=== PATIENT | female | born 1990 | race African-American/Black ===

== ENCOUNTER 2021-12-30 12:51 | Emergency (ER) | payer OTHER, SELFPAY ==
--- NOTE | ~2021-12-30 | US_ITS ---
US OB transvaginal DATE: 12/30/2021 14:07 INDICATION: Vaginal bleeding and cramping for one day TECHNIQUE: Real-time imaging via transvaginal approach COMPARISON: None FINDINGS: The uterus measures 9.8 cm height, 5.3 cm AP and 5.7 cm transverse dimension. Endometrial e cho complex measures up to 1.5 cm AP dimension. No intrauterine gestational sac is evident. Nabothian cysts are noted in the uterine cervical area. The right ovary is not visualized. The left ovary measures 4 x 2.3 x 2.1 cm and contains an approximately 1.4 x 1.8 cm cyst. There is a small amount of fluid in the left adnexal area and posterior cul-de-sac. IMPRESSION: 1.3 x 1.8 cm left ovarian cyst Small free fluid calculation in the left adnexal area and posterior cul-de-sac No intrauterine gestational sac is detected Reviewed, dictated and finalized at [facility]. Reviewed, dictated and finalized at [facility].
[2021-12-30 12:53] VITALS: BP 160/81; PULSE 82; RESP 18; TEMP 36.6; O2SAT 100
--- NOTE | 2021-12-30 13:11 | ED.FEMALEGU ---
HPI - Female Genitourinary General Chief complaint: Vaginal Bleeding <CARLOS Garcia Last Filed: 12/30/21 17:27> Stated complaint: 6 wks preg, bleeding <CARLOS Garcia Last Filed: 12/30/21 17:27> Time Seen by Provider: 12/30/21 12:58 <CARLOS Garcia Last Filed: 12/30/21 17:27> History of Present Illness HPI Narrative: Patient is a 31-year-old G2, P1 female who is currently about 6 weeks (LMP mid-november) here for evaluation of vaginal bleeding for the past day. Bleeding began with spotting, but is now likened to a normal menstrual cycle, and she has bled through about 2 pads today. Reports some intermittent lower abdominal cramping associated with bleeding, that she likens to menstrual cramps. She has not had her first visit yet, but did have four positive at home tests. Patient contacted Dr. Basilio's office, and the class [employer] provider recommended ED evaluation. She has not yet had an ultrasound to visualize IUP. Denies syncope, lightheadedness, leg swelling, headaches, visual changes. <CARLOS Garcia Last Filed: 12/30/21 17:27> Related Data Home medications: Home Medications Medication Instructions Recorded Confirmed montelukast 10 mg tablet 10 mg PO DAILY 02/01/20 09/02/21 (Singulair) azelastine 137 mcg (0.1 %) nasal 137 mcg intranasal Q12H 08/30/21 09/02/21 spray aerosol <CARLOS Garcia Last Filed: 12/30/21 17:27> Allergies/Adverse reactions: Allergies Allergy/AdvReac Type Severity Reaction Status Date / Time No Known Allergies Allergy Verified 08/30/21 13:42 <CARLOS Garcia Last Filed: 12/30/21 17:27> Review of Systems Review of Systems: Gen.: Denies fevers or chills Eyes: Denies eye pain or visual change ENT: Denies congestion Respiratory: Denies shortness of breath or cough CV: Denies chest pain or palpitations GI: Reports abdominal cramping. Denies nausea, emesis or diarrhea : Reports vaginal bleeding. Denies burning, urgency, frequency or hematuria Musculoskeletal: Denies back pain or muscle pain Neuro: Denies numbness, tingling, weakness or focal weakness Skin: Denies rash Except as documented, all other systems reviewed and negative <Cynthia Herring PA-C - Last Filed: 12/30/21 17:27> [facility] Past Medical History Medical History: Medical History Raynaud disease <Cynthia Herring PA-C - Last Filed: 12/30/21 17:27> Surgical History Surgical History: Surgical History History of section History of cholecystectomy S/P gastric surgery <Cynthia Herring PA-C - Last Filed: 12/30/21 17:27> Family History Family History: Family History Father Hypertension Family history of elevated blood lipids Grandparent Hypertension Diabetes mellitus <Cynthia Herring PA-C - Last Filed: 12/30/21 17:27> Social History Social History: Social History Smoking status: Never smoker Second hand tobacco smoke exposure: No Alcohol intake: never <Cynthia Herrnig PA-C - Last Filed: 12/30/21 17:27> Exam Narrative: APPEARANCE: No acute distress, nontoxic, resting in bed, obese EYES: EOMI HEENT: Normocephalic, atraumatic, OMM RESPIRATORY: No respiratory distress Clear to auscultation bilaterally with no rhonchi wheezing or rales. CARDIOVASCULAR: Regular rate and rhythm without murmurs rubs or gallops. ABDOMINAL: Soft, nontender, nondistended, no rebound or guarding MUSCULOSKELETAL: Moves all extremities. No clubbing, cyanosis or edema. NEURO: Awake and alert. Following commands, speech normal, no focal deficits : Exam performed with license inspector Rehana. Moderate amount o
[2021-12-30 13:30] LABS: Basophils Percent Auto 0.1 % (0.2-1.2); Eosinophils Absolute Auto 0.1 K/mm3 (0-0.3); Eosinophils Percent Auto 1.4 % (0-4.4); Hemoglobin 10.3 g/dL (12.0-15.0); Immature Granulocyte Absolute 0.02 K/mm3 (0.00-0.031); Immature Granulocyte Percent A 0.3 % (0-0.5); Lymphocytes Percent Auto 18.3 % (18.3-44.2); Mean Corpuscular HGB Conc 31.2 g/dl (32-36); Mean Corpuscular Hemoglobin 26.6 pg (26-34); Mean Corpuscular Volume 85.3 fl (80-100); Mean Platelet Volume 8.8 fl (7.4-10.4); Monocytes Absolute Auto 0.5 K/mm3 (0.1-0.6); Monocytes Percent Auto 6.9 % (2.6-8.5); Neutrophils Absolute Auto 5.2 K/mm3 (1.3-6.7); Platelet Count Result 372 k/mm3 (150-375); Red Blood Count 3.87 M/mm3 (4.2-5.4); Red Cell Distribution Width 14.2 % (11.5-14.5); White Blood Count 7.1 K/mm3 (4.5-10.0)
--- NOTE | 2021-12-30 13:30 | PC.NURSE ---
Patient off unit to US.
[2021-12-30 13:56] LABS: Beta HCG Quantitative 52.92 mIU/ML
[2021-12-30 15:58] LABS: Bacteria Urine Trace /hpf; Mucus Urine Rare /lpf; RBC Urine >75 /hpf (0-2); Squamous Epithelial Cell Urine Many /hpf (Few); WBC Urine >75 /hpf
[2021-12-30 16:09] LABS: Add Urine Microscopic? YES; Appearance Urine Slightly Cloudy (Clear); Bilirubin Urine Negative (Negative); Blood Urine 3+ (Negative); Color Urine Red (Yellow); Glucose Urine UA Negative (Negative); Ketones Urine Trace mg/dL (Negative); Leukocyte Esterase Ur Trace LEU/UL (Negative); Nitrate Urine Negative (Negative); Protein Urine 2+ mg/dL (Negative); Urobilinogen Urine 0.2 mg/dL (<2.0); pH Urine 6.5 (5.0-9.0)
[2021-12-30 16:16] VITALS: BP 141/90; PULSE 77; RESP 18; O2SAT 100
== END 2021-12-30 16:17 | disposition home or self-care (01) ==
PROVIDERS: Physician Assistant; Emergency Provider Emergency Medicine; PCP Obstetrics & Gynecology
DX: O20.9 Hemorrhage in early pregnancy, unspecified (principal); Z3A.01 Less than 8 weeks gestation of pregnancy
CPT/HCPCS: 36415; 76817; 81001; 81025; 84702; 85025; 85461; 87086; 99284

== ENCOUNTER 2022-04-24 10:43 | Outpatient (CLI) | payer OTHER, SELFPAY ==
--- NOTE | ~2022-04-24 | US_ITS ---
EXAMINATION: US breast BI limited HISTORY: Patient with pain in the lower outer quadrant of the right breast and lower inner quadrant o f the left breast as well as the bilateral axilla. TECHNIQUE: Limited bilateral breast ultrasound is performed. FINDINGS: There is no evidence of focal abnormal cystic or solid mass in the vicinity of the patient' s reported pain in either breast. There are normal-appearing bilateral axillary lymph nodes. IMPRESSION: No specific sonographic correlate is identified for the patient's reported pain. Further evaluation a t this time should be based on clinical assessment. Continued follow-up physical examination is recom mended. BI-RADS Category 1: Negative Reviewed, dictated and finalized at location [facility]. IMPRESSION: No specific sonographic correlate is identified for the patient's reported pain . Further evaluation at this time should be based on clinical assessment. Manuel nued follow-up physical examination is recommended. BI-RADS Category 1: Negative
== END 2022-04-24 10:44 | disposition home or self-care (01) ==
PROVIDERS: PCP Obstetrics & Gynecology; Visit Provider Obstetrics & Gynecology
DX: R92.2 Inconclusive mammogram (principal); N64.4 Mastodynia
CPT/HCPCS: 76641; 76642

== ENCOUNTER 2022-11-29 11:06 | Outpatient (CLI) | payer OTHER, SELFPAY ==
--- NOTE | ~2022-11-29 | US_ITS ---
Pelvic ultrasound. Clinical History: First trimester , encounter for supervision of normal Technique: Realtime transabdominal and transvaginal scanning of the pelvis was performed. Color flow Doppler and Doppler spectral analysis were performed. Findings: The uterus is anteverted, and contains an intrauterine gestation. [place]-rump length of 8 mm corresponds to an estimated gestational age of 6 weeks 5 days. no distinct cardiac activity se en. There is some debris within the gestational sac. Neither ovary seen. No adnexal mass seen. There is no evidence of free fluid in the cul de sac. Impression: Intrauterine gestation with estimated gestational age of 6 weeks 5 days, but no cardiac activity. Thi s is highly suspicious for demise/missed . Correlate clinically. Reviewed, dictated and finalized at location . Impression: Intrauterine gestation with estimated gestational age of 6 weeks 5 days, but no cardiac activity. This is highly suspicious for demise/missed . Correlate clinically.
== END 2022-11-29 11:07 | disposition home or self-care (01) ==
PROVIDERS: PCP Internal Medicine; Visit Provider Registered Nurse
DX: Z34.90 Encounter for supervision of normal pregnancy, unspecified, unspecified trimester (principal); Z3A.01 Less than 8 weeks gestation of pregnancy
CPT/HCPCS: 76801; 76817

== ENCOUNTER 2022-11-29 17:19 | Outpatient (CLI) | payer OTHER, SELFPAY | END 2022-11-29 17:20 | disposition home or self-care (01) | LOC: ANHLAB 17:21 | PROVIDERS: PCP Internal Medicine; Visit Provider Registered Nurse | DX: O20.0 Threatened abortion (principal); Z3A.00 Weeks of gestation of pregnancy not specified | CPT/HCPCS: 36415; 84702 ==

== ENCOUNTER 2022-12-02 07:17 | Outpatient (CLI) | payer OTHER, SELFPAY | END 2022-12-02 07:18 | disposition home or self-care (01) | PROVIDERS: Registered Nurse; PCP Internal Medicine; Visit Provider Obstetrics & Gynecology | DX: O20.0 Threatened abortion (principal) | CPT/HCPCS: 36415; 84702 ==

== ENCOUNTER 2022-12-26 07:55 | Outpatient (RCR) | payer OTHER, SELFPAY ==
[2022-12-26 08:05] VITALS: BMI 44.6
[2022-12-26 09:04] VITALS: BMI 44.6
== END 2023-03-26 23:59 | disposition home or self-care (01) ==
LOC: ANHDMC 07:55
PROVIDERS: PCP Internal Medicine; Visit Provider Obstetrics & Gynecology
DX: R73.09 Other abnormal glucose (principal); Z71.3 Dietary counseling and surveillance
CPT/HCPCS: 97802

== ENCOUNTER 2023-11-04 10:42 | Outpatient (CLI) | payer OTHER, SELFPAY | END 2023-11-04 10:43 | disposition home or self-care (01) | LOC: ANHLAB 10:44 | PROVIDERS: PCP Internal Medicine; Visit Provider Obstetrics & Gynecology | DX: N91.2 Amenorrhea, unspecified (principal) | CPT/HCPCS: 36415; 84144; 84702 ==

== ENCOUNTER 2023-11-07 08:54 | Outpatient (CLI) | payer OTHER, SELFPAY | END 2023-11-07 08:55 | disposition home or self-care (01) | LOC: ANHLAB 08:56 | PROVIDERS: PCP Internal Medicine; Visit Provider Obstetrics & Gynecology | DX: N91.2 Amenorrhea, unspecified (principal) | CPT/HCPCS: 36415; 84702 ==

== ENCOUNTER 2023-11-20 16:40 | Outpatient (CLI) | payer OTHER, SELFPAY ==
--- NOTE | ~2023-11-20 | US_ITS ---
EXAMINATION: US OB <=14 wk fetus w TV DATE: 11/20/2023 18:20 INDICATION: with inconclusive viability. TECHNIQUE: Real-time transabdominal and transvaginal pelvic ultrasound was performed. COMPARISON: None. FINDINGS: TRANSABDOMINAL ULTRASOUND: The uterus measures 10.6 x 5.3 x 7.3 cm. TRANSVAGINAL ULTRASOUND: There is an intrauterine gestational sac. A yolk sac is identified. The fet al crown rump length measures 8 mm, which correlates with an estimated gestational age of 6 weeks and 5 day(s) (+/-) 4 day(s). heart motion is identified measuring 128 beats per minute (bpm) by M- mode Doppler. There are nabothian cysts in the cervix. The right ovary measures 5.1 x 3.1 x 2.8 cm. T he left ovary measures 2.5 x 2.2 x 1.7 cm. There is no free fluid in the pelvis. IMPRESSION: 1. Single living intrauterine gestation with estimated date of delivery of 07/10/2024. Reviewed, dictated and finalized at location E.
== END 2023-11-20 16:41 | disposition home or self-care (01) ==
LOC: ANHIMG 16:41
PROVIDERS: PCP Internal Medicine; Visit Provider Obstetrics & Gynecology
DX: O36.80X0 Pregnancy with inconclusive fetal viability, not applicable or unspecified (principal); Z3A.00 Weeks of gestation of pregnancy not specified
CPT/HCPCS: 76801; 76817

== ENCOUNTER 2024-02-26 12:44 | Outpatient (CLI) | payer OTHER, SELFPAY ==
[2024-02-26 13:03] LABS: Hematocrit 29.5 % (37.0-47.0); Hemoglobin 9.2 g/dL (12.0-15.0); Mean Corpuscular HGB Conc 31.2 g/dl (32-36); Mean Corpuscular Hemoglobin 25.9 pg (26-34); Mean Corpuscular Volume 83.1 fl (80-100); Mean Platelet Volume 9.4 fl (7.4-10.4); Platelet Count Result 390 k/mm3 (150-375); Red Blood Count 3.55 M/mm3 (4.2-5.4); Red Cell Distribution Width 13.5 % (11.5-14.5); White Blood Count 7.9 K/mm3 (4.5-10.0)
[2024-02-26 13:15] LABS: Alanine Aminotransferase 13 U/L (6-35); Albumin Level 3.5 g/dL (3.5-5.1); Alkaline Phosphatase 50 U/L (38-126); Anion Gap 8 mmol/L (4-12); Aspartate Amino Transferase 19 U/L (14-36); Bilirubin,Total 0.2 mg/dL (0.2-1.3); Blood Urea Nitrogen 5 mg/dL (7-17); Calcium 8.4 mg/dL (8.4-10.2); Carbon Dioxide 25 mmol/L (22-30); Chloride 104 mmol/L (98-107); Estimated Glomerular Filt Rate > 60; Glucose 86 mg/dL (65-110); Potassium 3.8 mmol/L (3.4-5.0); Sodium 137 mmol/L (137-145)
[2024-02-26 13:16] LABS: Creatinine Urine 288.1 mg/dL; Total Protein Urine Random 6 mg/dL; Ur Ttl Prot Creatinine Ratio 0.02 mg/mg (0-0.20)
== END 2024-02-26 12:45 | disposition home or self-care (01) ==
LOC: ANHLAB 12:45
PROVIDERS: PCP Internal Medicine; Visit Provider Nurse Practitioner Family
DX: Z34.90 Encounter for supervision of normal pregnancy, unspecified, unspecified trimester (principal); Z3A.00 Weeks of gestation of pregnancy not specified
CPT/HCPCS: 36415; 80053; 82570; 84156; 85027

== ENCOUNTER 2024-03-01 07:09 | Outpatient (CLI) | payer OTHER, SELFPAY ==
[2024-03-01 08:09] LABS: Estimated Glomerular Filt Rate > 60
[2024-03-01 09:47] LABS: Creatinine Urine 126.9 mg/dL; Total Protein Urine Random 6 mg/dL
[2024-03-01 09:54] LABS: Collection Time Urine 24 HOURS; Total Protein Urine 24 Hr 45 mg/24hr (28-141); Total Volume 24 Hour Urine 750 ml
[2024-03-02 11:07] LABS: Creatinine Clearance Urine 88.9 ml/min (75-125); Patient Weight 322 Lbs
== END 2024-03-01 07:10 | disposition home or self-care (01) ==
LOC: ANHLAB 07:10
PROVIDERS: PCP Internal Medicine; Visit Provider Nurse Practitioner Family
DX: Z34.90 Encounter for supervision of normal pregnancy, unspecified, unspecified trimester (principal); Z3A.00 Weeks of gestation of pregnancy not specified
CPT/HCPCS: 36415; 81050; 82565; 82575; 84156